=== PATIENT | male | born 1955 | race Caucasian/White ===

== ENCOUNTER 2018-08-02 08:06 | Emergency (ER) | payer OTHER, BC ==
[2018-08-02] MEDS ORDERED: LIDOCAINE 1% INJ-PF (10 MG/ML) 30 ML SDV INJ ONE (08:40)
[2018-08-02] MEDS ORDERED: DIPH/PERTUSS(ACELL)/TETANUS VAC/PF 0.5 ML SYR (>=10YO) IM ONE (08:42)
--- NOTE | 2018-08-02 09:28 | RADIOLOGY REPORT (SQ) ---
EXAM DESCRIPTION: FINGER RIGHT COMPLETED DATE/TIME: 08/02/2018 9:04 am REASON FOR STUDY: meat saw cut to finger COMPARISON: None. NUMBER OF VIEWS: Three views. TECHNIQUE: AP, lateral, and oblique images acquired of the right second finger. LIMITATIONS: None. FINDINGS: MINERALIZATION: Normal. BONES: No acute fracture or dislocation. No worrisome bone lesions. SOFT TISSUES: Laceration at level of proximal interphalangeal joint. No foreign body. OTHER: No other significant finding. IMPRESSION: No fracture or foreign body. COMMENT: SITE OF TRAUMA/COMPLAINT MARKED/STAMP COMPLETED: YES. TECHNICAL DOCUMENTATION: JOB ID: [id number] [employer]- All Rights Reserved Reading location - IP/workstation name: [email or web address]
--- NOTE | 2018-08-02 09:52 | ER Document Report ---
ED Hand/Wrist Injury - General Chief Complaint: Finger Injury Stated Complaint: HAND INJURY Time Seen by Provider: 08/02/18 08:26 Primary Care Provider: RAINE MACE MD [Primary Care Provider] - Follow up as needed Mode of Arrival: Ambulatory Information source: Patient Notes: Patient is a 63-year-old male comes to the emergency room with a complaint of a left index finger laceration caused by a meat press operator. 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 He denies any loss of function as far as he can tells and he has only history of hypertension. TRAVEL OUTSIDE OF THE [place] IN LAST 30 DAYS: No - HPI Injury to: Index finger Onset: Just prior to arrival Where: Work Timing: Constant Quality of pain: Throbbing Severity: Moderate Pain Level: 3 Context: Laceration - Related Data Allergies/Adverse Reactions: No Known Allergies Allergy (Verified 08/02/18 08:10) Past Medical History - General Information source: Patient - Social History Smoking Status: Former Smoker Cigarette use (# per day): No Chew tobacco use (# tins/day): No Smoking Education Provided: No Frequency of alcohol use: None Drug Abuse: None Lives with: Family Family History: Reviewed & Not Pertinent Patient has suicidal ideation: No Patient has homicidal ideation: No Renal/ Medical History: Denies: Hx Peritoneal Dialysis Review of Systems - Review of Systems Constitutional: No symptoms reported EENT: No symptoms reported Cardiovascular: No symptoms reported Respiratory: No symptoms reported Gastrointestinal: No symptoms reported Genitourinary: No symptoms reported Male Genitourinary: No symptoms reported Musculoskeletal: See HPI, Joint pain, Joint swelling Skin: Other - Laceration dorsal aspect of the left index finger Hematologic/Lymphatic: No symptoms reported Neurological/Psychological: No symptoms reported -: Yes All other systems reviewed and negative Physical Exam - Vital signs Vitals: Temp Pulse Resp BP Pulse Ox 98.2 F 74 16 142/88 H 96 08/02/18 08:15 08/02/18 08:15 08/02/18 08:15 08/02/18 08:15 08/02/18 08:15 Interpretation: Hypertensive - Notes Notes: PHYSICAL EXAMINATION: GENERAL: Well-appearing, well-nourished and in no acute distress. HEAD: Atraumatic, normocephalic. EYES: Pupils equal round and reactive to light, extraocular movements intact, sclera anicteric, conjunctiva are normal. LUNGS: Breath sounds clear to auscultation bilaterally and equal. No wheezes rales or rhonchi. HEART: Regular rate and rhythm without murmurs Musculoskeletal: Examination patient's area of concern is his left index finger. On initial examination patient had a bulky wrapping on it. Removal of the bulky wrapping reveal patient has a horizontal cut across the top of the left MIP. Further examination shows the patient has full flexion and extension of the finger without any deficits. He also shows a good flexion and extension against resistance and good strength against resistance both with flexion and extension. Laceration is approximately 2.3 cm across and from instrumentation it is approximately 0.5 cm deep. By occluding blood flow to the area since patient is on Eliquis still difficult to get a complete bloodless field but I could visualize the tendon and it did appear to be still intact. I was unable to tell whether there was a little neck out of it or not but he does have again full use of the finger with good strength against resistance. He has good cap refill in the nailbed of the finger after examination and after suturing as well. NEUROLOGICAL: Normal speech, normal gait. Normal sensory, motor exams PSYCH: Normal mood, normal affect. SKIN: Warm, Dry, normal turgor, no rashes or lesions noted. Course - Re-evaluation Re-evalutation: 08/02/18 09:54 Given the patient was cutting meat at the time and primarily poor going to place him on doxycycline 1 tablet twice a day for [address] him in a splint for the next 3-4 days informed him that he needed to be very careful to keep it clean dry for at least 48 hours and then while at work keep it is clean dry as possible. He should be return to work on Saturday with limited use of the left hand. I have informed him that I will be given him a referral to Dr. Boykin he is our hand specialist in the area. Even though I would visualize the tendon somewhat under the Eliquis it was very difficult to tell if it was in a complete whole attached area or if there was a neck out of it. It is felt he needs follow-up with a hand specialist to make sure that is all is okay. And a other than that he should go to return for suture removal unless changed by orthopedic in 10-12 days. - Vital Signs Vital signs: Temp Pulse Resp BP Pulse Ox 98.0 F 74 16 167/81 H 97 08/02/18 10:08 08/02/18 10:08 08/02/18 10:08 08/02/18 10:08 08/02/18 10:08 Procedures - Laceration/Wound Repair Left 2nd digit Wound length (cm): 2.3 Wound's Depth, Shape: Into muscle, Linear Laceration pre-procedure: Sterile PPE donned, Sterile drapes applied, Shur-Clens applied Anesthetic type: 1% Lidocaine Volume Anesthetic (mLs): 3 Wound explored: Clean Irrigated w/ Saline (mLs): 500 Wound Debrided: Minimal Wound Repaired With: Sutures Suture Size/Type: 4:0, Prolene Number of Sutures: 5 Layer Closure?: No Post-procedure wound care: Sterile dressing applied, Splint applied Post-procedure NV exam normal: Yes Complications: No Notes: 08/02/18 09:53 Patient was placed in a aluminum finger splint with bulky dressing is applied by the sfdc technical architect and checked by me the ER physician pharmacy sales assistant found to be in good placement with good cap refill at the nail bed after application. Discharge - Discharge Clinical Impression: Laceration of left index finger Qualifiers: Encounter type: initial encounter Damage to nail status: without damage Foreign body presence: without foreign body Qualified Code(s): S61.211A - Laceration without foreign body of left index finger without damage to nail, initial encounter Condition: Good Disposition: HOME, SELF-CARE Instructions: Antibiotic Ointment Protection ([facility]), Laceration Care ([facility]), Prophylactic Antibiotic ([facility]), Soap Cleansing ([facility]), Tetanus Immunization Given ([facility]) Additional Instructions: Home today rest. Keep the area clean and dry for 48 hours and at work attempt to keep it is clean dry as possible for the 48 hours after that. I would wear some protection on it at all times for at least a week. At that time you can start to leave open to air and activity is normal. Return to the ER in 10-12 days for suture removal. I have given you the information to Dr. Boykin who is the hand specialist in the area. I sincerely feel that even though I could visu jessica the tendon somewhat that you need follow-up with a hand surgeon to make sure all is good. The caveat to that is you need to follow-up with him sometime this week because with a tendon if it is damaged to go a certain period of time to fix it. Should you have any concerns or if you do not believe it is healing appropriately before the time to return here return and let us see it. Prescriptions: Doxycycline Hyclate 100 mg PO BID #14 capsule Referrals: RAINE MACE MD [Primary Care Provider] - Follow up as needed
[2018-08-02 10:15] VITALS: BP 167/81
== END 2018-08-02 10:15 | disposition home or self-care (01) ==
LOC: ER 08:06
PROC: 0HQGXZZ Repair Left Hand Skin, External Approach (ICD-10-PCS; principal; 2018-08-02)
DX: S61.211A Laceration without foreign body of left index finger without damage to nail, initial encounter (principal); W27.4XXA Contact with kitchen utensil, initial encounter; Y92.512 Supermarket, store or market as the place of occurrence of the external cause; Y99.0 Civilian activity done for income or pay; Z79.01 Long term (current) use of anticoagulants; Z86.718 Personal history of other venous thrombosis and embolism; I10 Essential (primary) hypertension; Z87.891 Personal history of nicotine dependence
CPT/HCPCS: 99283; 90471; 73140; 90715; 12001; J3490

== ENCOUNTER 2019-02-12 05:03 | Emergency (ER) | payer BC, OTHER ==
[2019-02-12] MEDS ORDERED: LIDOCAINE 1.5%/EPINEPHRINE INJ-PF 30 ML SDV INJ ONE (06:08)
[2019-02-12] MEDS ORDERED: LIDOCAINE 1%/EPINEPHRINE INJ 20 ML VIAL ONE (06:10)
--- NOTE | 2019-02-12 07:26 | ER Document Report ---
ED Extremity Problem, Lower - General Chief Complaint: Leg Pain Stated Complaint: BLEEDING FROM LEFT LEG Time Seen by Provider: 02/12/19 05:56 Primary Care Provider: RAINE MACE MD [Primary Care Provider] - Follow up as needed Mode of Arrival: Ambulatory Information source: Patient TRAVEL OUTSIDE OF THE [place] IN LAST 30 DAYS: No - HPI Notes: Patient states he was picking at a scab yesterday on his left lower extremity when blood started shooting across the room. He states he called 911. He states the paramedics dressed the wound and did not bring him to the emergency department. He states today when he woke up he noticed that it was still bleeding so he came to the hospital. He denies any pain. Not lightheaded or dizzy. No known bleeding disorders. His symptoms have been intermittent. Nothing makes them better or worse. Other than when the leg is wrapped it does not bleed. There is no radiation symptoms. Symptoms have been mild to moderate. Patient denies any trauma. - Related Data Allergies/Adverse Reactions: No Known Allergies Allergy (Verified 08/02/18 08:10) Past Medical History - General Information source: Patient - Social History Smoking Status: Never Smoker Frequency of alcohol use: None Drug Abuse: None Family History: Reviewed & Not Pertinent Patient has suicidal ideation: No Patient has homicidal ideation: No Renal/ Medical History: Denies: Hx Peritoneal Dialysis Review of Systems - Review of Systems Constitutional: denies: Chills, Fever Cardiovascular: denies: Chest pain, Palpitations Respiratory: denies: Cough, Short of breath -: Yes All other systems reviewed and negative Physical Exam - Vital signs Vitals: Temp Pulse Resp BP Pulse Ox 98 F 92 16 154/88 H 97 02/12/19 05:10 02/12/19 05:10 02/12/19 05:10 02/12/19 05:10 02/12/19 05:10 Interpretation: Normal - General General appearance: Appears well, Alert - HEENT Head: Normocephalic, Atraumatic Eyes: Normal Pupils: PERRL - Respiratory Respiratory status: No respiratory distress Chest status: Nontender Breath sounds: Normal Chest palpation: Normal - Cardiovascular Rhythm: Regular Heart sounds: Normal auscultation Murmur: No - Abdominal Inspection: Normal Distension: No distension Bowel sounds: Normal Tenderness: Nontender Organomegaly: No organomegaly - Back Back: Normal, Nontender - Extremities General upper extremity: Normal inspection, Nontender, Normal color, Normal ROM, Normal temperature General lower extremity: Nontender, Normal color, Normal ROM, Normal temperature, Normal weight bearing, Other - Left lower extremity has a small area of arterial bleeding. When pressure is removed blood is seen to spray under pressure. - Neurological Neuro grossly intact: Yes Cognition: Normal Orientation: AAOx4 [place] Coma Scale Eye Opening: Spontaneous Lia Coma Scale Verbal: Oriented [place] Coma Scale Motor: Obeys Commands Lia Coma Scale Total: 15 Speech: Normal Motor strength normal: LUE, RUE, LLE, RLE Sensory: Normal - Psychological Associated symptoms: Normal affect, Normal mood - Skin Skin Temperature: Warm Skin Moisture: Dry Skin Color: Normal Course - Re-evaluation Re-evalutation: 02/12/19 07:43 Patient came in with an arterial bleed. I was able to place 2 sutures after injecting lidocaine with epinephrine. Bleeding has now stopped for the last hour. I will discharge the patient home to follow-up with his family physician. - Vital Signs Vital signs: Temp Pulse Resp BP Pulse Ox 98 F 92 16 154/88 H 97 02/12/19 05:10 02/12/19 05:10 02/12/19 05:10 02/12/19 05:10 02/12/19 05:10 Procedures - Laceration/Wound Repair Left Lower Leg Time completed: 07:24 Wound length (cm): 0.1 Wound's Depth, Shape: Other - Into the artery Laceration pre-procedure: Sterile drapes applied Anesthetic type: 1% Lidocaine w/epi Volume Anesthetic (mLs): 5 Wound explored: Clean Wound Repaired With: Sutures Suture Size/Type: 3:0, Nylon Number of Sutures: 2 - I placed 2 sutures in a [id number] pattern. Bleeding has stopped. Discharge - Discharge Clinical Impression: Arterial hemorrhage Condition: Stable Disposition: HOME, SELF-CARE Additional Instructions: Please call your family physician today. Please arrange for follow-up in the next 1 to 2 days for reevaluation of your wound. Please return immediately to the hospital if you have any further bleeding. Forms: Return to Work Referrals: RAINE MACE MD [Primary Care Provider] - Follow up as needed
[2019-02-12 08:16] VITALS: BP 148/77
== END 2019-02-12 08:16 | disposition home or self-care (01) ==
LOC: ER 05:03
DX: R58 Hemorrhage, not elsewhere classified (principal)
CPT/HCPCS: 12001; J3490; 99283